=== PATIENT | male | born 1940 | race African-American/Black ===

== ENCOUNTER 2023-04-16 15:12 | Emergency (ER) | payer OTHER ==
--- NOTE | 2023-04-16 16:37 | RAD REPORT ---
EXAM DESCRIPTION: CT - Head C Spine Mpr Wo Con - 04/16/2023 4:19 pm CLINICAL HISTORY: Head and neck injury status post fall. Head and neck pain COMPARISON: None. TECHNIQUE: Computed axial tomography of the head and cervical spine was obtained. Sagittal and coronal reconstruction was performed. All CT scans are performed using dose optimization technique as appropriate and may include automated exposure control or mA/KV adjustment according to patient size. FINDINGS: Right supraorbital hematoma. Vascular calcifications An intracranial bleed is not seen. The ventricles are normal in caliber. Mild to moderate low densities within the and deep, periventricular and subcortical white matter prob ably ischemic changes secondary small vessel disease. An extra-axial fluid collection is not noted. Fluid within the visualized sinuses and mastoids is not seen A cervical fracture is not visualized. No dislocation is noted. Mild posterior subluxation C5 on C6. Mild anterior subluxation C7 on T1. Presumably these are chronic Spondylosis cervical spine results spinal stenosis. IMPRESSION: No acute intracranial abnormality is seen. A cervical fracture is not visualized. If the patient continues to have symptoms to suggest intracranial /spinal cord/ligamentous pathology then MRI would be recommended
--- NOTE | 2023-04-16 17:04 | ER ---
Nurse's Notes [facility] Name: Hung Trinh Age: 83 yrs Sex: Male : 1940 Arrival Date: 04/16/2023 Time: 15:12 Bed DIS1 Private MD: Diagnosis: History of falling;Fall on same level, unspecified;Abrasion of other part of head;Nontraumatic hematoma of soft tissue;Unspecified injury of head, initial encounter Presentation: 04/16 15:47 Chief complaint: Patient states: Trip while doing yard work just [employer]. Hit head on ll1 concrete. Hematoma to R face and R eye. No LOC. Ebola Screen: Patient denies travel to an Ebola-affected area in the 21 days before illness onset. Initial Sepsis Screen: Does the patient meet any 2 criteria? No. Patient's initial sepsis screen is negative. Does the patient have a suspected source of infection? No. Patient's initial sepsis screen is negative. Risk Assessment: Do you want to hurt yourself or someone else? Patient reports no desire to harm self or others. Onset of symptoms was April 16, 2023. 15:47 Method Of Arrival: EMS ll1 15:47 Acuity: USZANNE 3 ll1 Triage Assessment: 15:47 General: Appears uncomfortable, Behavior is calm, cooperative, appropriate for age. ll1 Pain: Complains of pain in right cheek Quality of pain is described as aching. Derm: abrasions/hematoma R cheek and R orbit. Musculoskeletal: Circulation, motion, and sensation intact. Capillary refill < 3 seconds. Historical: - Allergies: 15:47 No Known Allergies; ll1 - PMHx: 15:47 CAD; Gout; Hypertension; ll1 - Immunization history:: Adult Immunizations up to date. - Family history:: not pertinent. Assessment: 17:19 Reassessment: No changes from previously documented assessment. Patient and/or family ll1 updated on plan of care and expected duration. Pain level reassessed. Patient is alert, oriented x 3, equal unlabored respirations, skin warm/dry/pink. Vital Signs: 15:51 BP 156 / 90; Pulse 63; Resp 17; Temp 97.7; Pulse Ox 100% ; Pain 5/10; jl7 15:51 Pain Scale: Adult jl7 [place] Coma Score: 18:39 Eye Response: spontaneous(4). Motor Response: obeys commands(6). Verbal Response: ll1 oriented(5). Total: 15. Trauma Score (Adult): 18:39 Eye Response: spontaneous(1); Verbal Response: oriented(1); Motor Response: obeys ll1 commands(2); Systolic BP: > 89 mm Hg(4); Respiratory Rate: 10 to 29 per min(4); [place] Score: 15; Trauma Score: 12 ED Course: 15:37 Patient arrived in ED. mb9 15:40 Que Savage MD is Attending Physician. cp3 15:47 Arm band placed on. ll1 15:48 Triage completed. ll1 16:21 CT Head C Spine In Process Unspecified. EDMS 16:59 Andrew Penn MD is Referral Physician. cp3 Administered Medications: No medications were administered Outcome: 17:03 Discharge ordered by MD. cp3 17:19 Patient left the ED. ll1 17:19 Discharged to home via wheelchair. ll1 17:19 Condition: stable 17:19 Discharge instructions given to patient, family, Instructed on discharge instructions, follow up and referral plans. Demonstrated understanding of instructions, follow-up care, wound care. Signatures: Dispatcher [employer] EDPR Que Savage MD MD cp3 Koko Moeller RN RN jl7 Valentín James RN RN ll1 Gabby Irby RN RN mb9
--- NOTE | 2023-04-16 17:04 | EDPHYS ---
Physician Documentation [facility] Name: Hung Trinh Age: 83 yrs Sex: Male : 1940 Arrival Date: 04/16/2023 Time: 15:12 Bed DIS1 Private MD: ED Physician Que Savage HPI: 04/16 16:56 This 83 yrs old Black Male presents to ER via EMS with complaints of Fall Injury. cp3 16:56 Patient is a 83-year-old male with a history of coronary disease, gout, hypertension cp3 who presents to the ED secondary to fall from standing. Patient had mechanical fall lost his balance and fell and struck his right face on the wall. No LOC. No neurologic change. No nausea vomiting. Patient with soft tissue swelling over the right orbit. Historical: - Allergies: 15:47 No Known Allergies; ll1 - PMHx: 15:47 CAD; Gout; Hypertension; ll1 - Immunization history:: Adult Immunizations up to date. - Family history:: not pertinent. ROS: 16:56 Constitutional: Negative for fever, chills, and weight loss, Eyes: Negative for injury, cp3 pain, redness, and discharge, Neck: Negative for injury, pain, and swelling, Cardiovascular: Negative for chest pain, palpitations, and edema, Respiratory: Negative for shortness of breath, cough, wheezing, and pleuritic chest pain, Abdomen/GI: Negative for abdominal pain, nausea, vomiting, diarrhea, and constipation, Back: Negative for injury and pain, : Negative for injury, bleeding, discharge, and swelling, MS/Extremity: Negative for injury and deformity, Skin: Negative for injury, rash, and discoloration, Neuro: Negative for headache, weakness, numbness, tingling, and seizure, Psych: Negative for depression, anxiety, suicide ideation, homicidal ideation, and hallucinations, Allergy/Immunology: Negative for hives, rash, and allergies, Endocrine: Negative for neck swelling, polydipsia, polyuria, polyphagia, and marked weight changes, Hematologic/Lymphatic: Negative for swollen nodes, abnormal bleeding, and unusual bruising. 16:56 ENT: Positive for Right facial contusion. Exam: 16:56 Neck: Trachea midline, no thyromegaly or masses palpated, and no cervical cp3 lymphadenopathy. Supple, full range of motion without nuchal rigidity, or vertebral point tenderness. No Meningismus. Chest/axilla: Normal chest wall appearance and motion. Nontender with no deformity. No lesions are appreciated. Cardiovascular: Regular rate and rhythm with a normal S1 and S2. No gallops, murmurs, or rubs. Normal PMI, no JVD. No pulse deficits. Respiratory: Lungs have equal breath sounds bilaterally, clear to auscultation and percussion. No rales, rhonchi or wheezes noted. No increased work of breathing, no retractions or nasal flaring. Abdomen/GI: Soft, non-tender, with normal bowel sounds. No distension or tympany. No guarding or rebound. No evidence of tenderness throughout. Back: No spinal tenderness. No costovertebral tenderness. Full range of motion. Skin: Warm, dry with normal turgor. Normal color with no rashes, no lesions, and no evidence of cellulitis. MS/ Extremity: Pulses equal, no cyanosis. Neurovascular intact. Full, normal range of motion. Neuro: Awake and alert, GCS 15, oriented to person, place, time, and situation. Cranial nerves II-XII grossly intact. Motor strength 5/5 in all extremities. Sensory grossly intact. Cerebellar exam normal. Normal gait. Psych: Awake, alert, with orientation to person, place and time. Behavior, mood, and affect are within normal limits. 16:56 Head/face: Noted is abrasion(s), that are moderate, of the forehead, right cheek, right ear and right cheondoism, contusion. Vital Signs: 15:51 BP 156 / 90; Pulse 63; Resp 17; Temp 97.7; Pulse Ox 100% ; Pain 5/10; jl7 15:51 Pain Scale: Adult jl7 [place] Coma Score: 18:39 Eye Response: spontaneous(4). Motor Response: obeys commands(6). Verbal Response: ll1 oriented(5). Total: 15. Trauma Score (Adult): 18:39 Eye Response: spontaneous(1); Verbal Response: oriented(1); Motor Response: obeys ll1 commands(2); Systolic BP: > 89 mm Hg(4); Respiratory Rate: 10 to 29 per min(4); [place] Score: 15; Trauma Score: 12 MDM: 15:44 Patient medically screened. cp3 16:56 Differential diagnosis: abrasion, closed head injury, contusion, fracture, laceration, cp3 sprain, strain. Data reviewed: vital signs, nurses notes, EMS record, halfway records. Consideration of Admission/Observation Escalation of care including admission/observation considered. No emergent indication for hospitalization. I considered the following discharge prescriptions or medication management in the emergency department Medications were administered in the Emergency Department. See MAR. ED course: Results reviewed with patient and patient's son at bedside. 04/16 15:59 Order name: CT Head C Spine; Complete Time: 16:49 3 04/16 16:55 Interpretation: No acute disease except: Per Radiologist's finding(s): [place] [address] [facility] REPORT Name: HUNG TRINH Acct Number: [id number] :1940 Age:83 Sex:M Ord Phys: Que Savage MD Unit Number: [id number] [facility] Dr: Christos Mackey MD Status: REG ER ER Exam Date: 04/16/23 EXAM DESCRIPTION: CT - Head C Spine Mpr Wo Con - 04/16/2023 4:19 pm CLINICAL HISTORY: Head and neck injury status post fall. Head and neck pain COMPARISON: None. TECHNIQUE: Computed axial tomography of the head and cervical spine was obtained. Sagittal and coronal reconstruction was performed. All CT scans are performed using dose optimization technique as appropriate and may include automated exposure control or mA/KV adjustment according to patient size. FINDINGS: Right supraorbital hematoma. Vascular calcifications An intracranial bleed is not seen. The ventricles are normal in caliber. Mild to moderate low densities within the and deep, periventricular and subcortical white matter probably ischemic changes secondary small vessel disease. An extra-axial fluid collection is not noted. Fluid within the visualized sinuses and mastoids is not seen A cervical fracture is not visualized. No dislocation is noted. Mild posterior subluxation C5 on C6. Mild anterior subluxation C7 on T1. Presumably these are chronic Spondylosis cervical spine results spinal stenosis. IMPRESSION: No acute intracranial abnormality is seen. A cervical fracture is not visualized. If the patient continues to have symptoms to suggest intracranial /spinal cord/ligamentous pathology then MRI would be recommended Signed By: Ramon Morrissey MD Signed AT: 04/16/23 1637 , Per Radiologist's finding(s): [place] [address] [facility] REPORT Name: HUNG TRINH Acct Number: [id number] :1940 Age:83 Sex:M Ord Phys: Que Savage MD Unit Number: [id number] [facility] Dr: Christos Mackey MD Status: REG ER ER Exam Date: 04/16/23 EXAM DESCRIPTION: CT - Head C Spine Mpr Wo Con - 04/16/2023 4:19 pm CLINICAL HISTORY: Head and neck injury status post fall. Head and neck pain COMPARISON: None. TECHNIQUE: Computed axial tomography of the head and cervical spine was obtained. Sagittal and coronal reconstruction was performed. All CT scans are performed using dose optimization technique as appropriate and may include automated exposure control or mA/KV adjustment according to patient size. FINDINGS: Right supraorbital hematoma. Vascular calcifications An intracranial bleed is not seen. The ventricles are normal in caliber. Mild to moderate low densities within the and deep, periventricular and subcortical white matter probably ischemic changes secondary small vessel disease. An extra-axial fluid collection is not noted. Fluid within the visualized sinuses and mastoids is not seen A cervical fracture is not visualized. No dislocation is noted. Mild posterior subluxation C5 on C6. Mild anterior subluxation C7 on T1. Presumably these are chronic Spondylosis cervical spine results spinal stenosis. IMPRESSION: No acute intracranial abnormality is seen. A cervical fracture is not visualized. If the patient continues to have symptoms to suggest intracranial /spinal cord/ligamentous pathology then MRI would be recommended Signed By: Ramon Morrissey MD Signed AT: 04/16/23 163 . Administered Medications: No medications were administered Disposition Summary: 04/16/23 17:03 Discharge Ordered Location: Home cp3 Condition: Stable cp3 Diagnosis - History of falling cp3 - Fall on same level, unspecified cp3 - Abrasion of other part of head cp3 - Nontraumatic hematoma of soft tissue cp3 - Unspecified injury of head, initial encounter cp3 Followup: cp3 - With: Andrew Penn MD - When: 48 Hours - Reason: Wound Recheck Discharge Instructions: - Discharge Summary Sheet cp3 - Head Injury, Adult cp3 Forms: - Medication Reconciliation Form cp3 - Thank You Letter cp3 - Antibiotic Education cp3 - Prescription Opioid Use cp3 - Patient Portal Instructions cp3 - Leadership Thank You Letter cp3 Signatures: Dispatcher [employer] EDQue Cook MD MD cp3 Valentín James RN RN ll1 Corrections: (The following items were deleted from the chart) 16:55 16:55 Per Radiologist's finding(s): [place] [address] [facility] [address] [address] [facility] REPORT Name: HUNG TRINH Acct Number: [id number] :1940 Age:83 Sex:M Ord Phys: Que Savage MD Unit Number: [id number] [facility] Dr: Christos Mackey MD Status: REG ER ER Exam Date: 04/16/23 EXAM DESCRIPTION: CT - Head C Spine Mpr Wo Con - 04/16/2023 4:19 pm CLINICAL HISTORY: Head and neck injury status post fall. Head and neck pain COMPARISON: None. TECHNIQUE: Computed axial tomography of the head and cervical spine was obtained. Sagittal and coronal reconstruction was performed. All CT scans are performed using dose optimization technique as appropriate and may include automated exposure control or mA/KV adjustment according to patient size. FINDINGS: Right supraorbital hematoma. Vascular calcifications An intracranial bleed is not seen. The ventricles are normal in caliber. Mild to moderate low densities within the and deep, periventricular and subcortical white matter probably ischemic changes secondary small vessel disease. An extra-axial fluid collection is not noted. Fluid within the visualized sinuses and mastoids is not seen A cervical fracture is not visualized. No dislocation is noted. Mild posterior subluxation C5 on C6. Mild anterior subluxation C7 on T1. Presumably these are chronic Spondylosis cervical spine results spinal stenosis. IMPRESSION: No acute intracranial abnormality is seen. A cervical fracture is not visualized. If the patient continues to have symptoms to suggest intracranial /spinal cord/ligamentous pathology then MRI would be recommended Signed By: Ramon Morrissey MD Signed AT: 04/16/23 1637 . cp3 16:56 16:55 Per Radiologist's finding(s): [place] [id number] [facility] REPORT Name: HUNG TRINH Acct Number: [id number] :1940 Age:83 Sex:M Ord Phys: Que Savage MD Unit Number: [id number] [facility] Dr: Christos Mackey MD Status: REG ER ER Exam Date: 04/16/23 EXAM DESCRIPTION: CT - Head C Spine Mpr Wo Con - 04/16/2023 4:19 pm CLINICAL HISTORY: Head and neck injury status post fall. Head and neck pain COMPARISON: None. TECHNIQUE: Computed axial tomography of the head and cervical spine was obtained. Sagittal and coronal reconstruction was performed. All CT scans are performed using dose optimization technique as appropriate and may include automated exposure control or mA/KV adjustment according to patient size. FINDINGS: Right supraorbital hematoma. Vascular calcifications An intracranial bleed is not seen. The ventricles are normal in caliber. Mild to moderate low densities within the and deep, periventricular and subcortical white matter probably ischemic changes secondary small vessel disease. An extra-axial fluid collection is not noted. Fluid within the visualized sinuses and mastoids is not seen A cervical fracture is not visualized. No dislocation is noted. Mild posterior subluxation C5 on C6. Mild anterior subluxation C7 on T1. Presumably these are chronic Spondylosis cervical spine results spinal stenosis. IMPRESSION: No acute intracranial abnormality is seen. A cervical fracture is not visualized. If the patient continues to have symptoms to suggest intracranial /spinal cord/ligamentous pathology then MRI would be recommended Signed By: Ramon Morrissey MD Signed AT: 04/16/23 1637 , Per Radiologist's finding(s): [place] [address] [facility] REPORT Name: HUNG TRINH Acct Number: [id number] :1940 Age:83 Sex:M Ord Phys: Que Savage MD Unit Number: [id number] [facility] Dr: Christos Mackey MD Status: REG ER ER Exam Date: 04/16/23 EXAM DESCRIPTION: CT - Head C Spine Mpr Wo Con - 04/16/2023 4:19 pm CLINICAL HISTORY: Head and neck injury status post fall. Head and neck pain COMPARISON: None. TECHNIQUE: Computed axial tomography of the head and cervical spine was obtained. Sagittal and coronal reconstruction was performed. All CT scans are performed using dose optimization technique as appropriate and may include automated exposure control or mA/KV adjustment according to patient size. FINDINGS: Right supraorbital hematoma. Vascular calcifications An intracranial bleed is not seen. The ventricles are normal in caliber. Mild to moderate low densities within the and deep, periventricular and subcortical white matter probably ischemic changes secondary small vessel disease. An extra-axial fluid collection is not noted. Fluid within the visualized sinuses and mastoids is not seen A cervical fracture is not visualized. No dislocation is noted. Mild posterior subluxation C5 on C6. Mild anterior subluxation C7 on T1. Presumably these are chronic Spondylosis cervical spine results spinal stenosis.
[2023-04-16 17:24] VITALS: BP 156/90; TEMP 97.7; O2SAT 100
== END 2023-04-16 17:19 | disposition home or self-care (01) ==
LOC: ER 15:12
DX: S00.81XA Abrasion of other part of head, initial encounter (principal); M79.81 Nontraumatic hematoma of soft tissue; W18.30XA Fall on same level, unspecified, initial encounter; Z91.81 History of falling; I10 Essential (primary) hypertension; I25.10 Atherosclerotic heart disease of native coronary artery without angina pectoris
CPT/HCPCS: 70450; 72125; 99283

== ENCOUNTER 2024-06-11 11:29 | Emergency (ER) | payer OTHER ==
[2024-06-11 12:05] LABS: Absolute Lymphocytes (CBC) 1.7 K/uL (0.7-4.9); Absolute Monocytes 0.4 K/uL (0.1-1.3); Absolute Neutrophil 4.4 K/uL (1.8-8.0); Basophils % 0.5 % (0-1.3); Eosinophils % 0.5 % (0-4.4); Hemoglobin 13.7 g/dL (13.6-17.9); Lymphocytes % 25.8 % (15.3-44.8); MCH 30.9 pg (27.0-35.0); MCHC 32.5 g/dL (32.0-36.0); MPV 9.2 fL (7.6-11.3); Monocytes % 5.8 % (3.3-12.3); Neutrophils % 67.4 % (41.7-73.7); Platelets 197 thou/uL (152-406); RBC Red Blood Cell Count 4.43 M/uL (4.33-5.43)
[2024-06-11 12:28] LABS: Albumin 3.6 g/dL (3.4-5.0); Albumin/Globulin Ratio 0.8 (1.1-1.8); Anion Gap 8.5 mEq/L (5.0-15.0); Bilirubin Direct 0.2 mg/dL (0-0.2); Bilirubin Indirect, Calculated 0.4 mg/dL (0.2-0.8); Bilirubin Total 0.6 mg/dL (0.2-1.0); Globulin 4.5 g/dL (2.3-3.5); Potassium 3.5 mEq/L (3.5-5.1); Protein, Total 8.1 g/dL (6.4-8.2)
--- NOTE | 2024-06-11 13:38 | RAD REPORT ---
EXAM: CT brain without contrast HISTORY: TRAUMA COMPARISON: 04/16/2023 TECHNIQUE: Multiple contiguous axial images were obtained and a CT of the brain without contrast. Sag ittal and coronal reformats were performed. One or more of the following dose reduction techniques were used: Automated exposure control, adjust ment of the mA and/or kV according to patient size, and/or iterative reconstruction. FINDINGS: No evidence of hydrocephalus, intracranial hemorrhage, or extra-axial fluid collection. Mild brain atrophy with mild periventricular and deep white matter chronic microvascular ischemic ch anges present. No evidence of midline shift or areas of brain edema. The calvarium is intact. The visualized paranasal sinuses and mastoid air cells are essentially clear . Small right frontal scalp hematoma. IMPRESSION: No evidence of acute intracranial abnormality. EXAM: CT of the cervical spine without contrast HISTORY: Neck pain, injury TRAUMA COMPARISON: None TECHNIQUE: Multiple contiguous axial images were obtained in a CT of the cervical spine without contr ast. Sagittal and coronal reformats were performed. FINDINGS: The vertebral bodies demonstrate normal height and alignment. No evidence of acute fracture or subluxation.. Prominent multilevel degenerative changes seen mid and lower cervical spine with large posterior osteophyte. No prevertebral soft tissue swelling is seen. The posterior facets are well aligned. Normal alignment of the skull base with the cervical spine is seen. Bilateral carotid atherosclerosis. The lung apices are unremarkable. IMPRESSION: No evidence of acute osseous abnormality of the cervical spine. Moderate mid and lower cervical degenerative changes.
--- NOTE | 2024-06-11 13:41 | RAD REPORT ---
EXAM: CT CHEST, ABDOMEN AND PELVIS WITH CONTRAST CLINICAL INDICATION: [facility] TECHNIQUE: CT chest, abdomen and pelvis was performed, following the administration of contrast, as p er department protocol. Axial, sagittal and coronal reconstructions were obtained. One or more of the following dose reduction techniques were used: Automated exposure control, adjustment of the mA a nd/or kV according to patient size, and/or iterative reconstruction. Unless otherwise specified, incidental findings do not require dedicated imaging follow-up. COMPARISON: No prior exam. FINDINGS: LUNGS: Mild linear atelectasis in both lung bases. The lungs are emphysematous. PLEURA: No pleural effusion. No pneumothorax. MEDIASTINUM AND LYMPH NODES: No mediastinal mass or fluid collection. Normal size mediastinal, hilar, and axillary lymph nodes. Coronary calculations are seen along with mild aortic atherosclerosis. OSSEOUS STRUCTURES AND CHEST WALL: Intact. Sternotomy. LIVER: Normal in size and contour. No focal lesion or biliary dilatation. Grossly unremarkable gallbl adder. PANCREAS: No mass, ductal dilation, or dee-pancreatic fluid. SPLEEN: Normal size. No focal lesion. ADRENALS: Normal; no mass. KIDNEYS: Normal size and contour. No hydronephrosis. URINARY BLADDER: Normal contour. GASTROINTESTINAL TRACT: No bowel obstruction, free air, significant free fluid or abscess. APPENDIX: Normal appendix. LYMPH NODES: No lymphadenopathy. MUSCULOSKELETAL: No acute or suspicious osseous abnormality. OTHER: IMPRESSION: No acute or significant abnormalities seen in the chest, abdomen or pelvis.
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
[2024-06-11 15:22] VITALS: BP 158/74; TEMP 97.5; O2SAT 100
== END 2024-06-11 14:11 | disposition home or self-care (01) ==
LOC: ER 11:29
DX: S20.212A Contusion of left front wall of thorax, initial encounter (principal); R29.91 Unspecified symptoms and signs involving the musculoskeletal system; V49.40XA Driver injured in collision with unspecified motor vehicles in traffic accident, initial encounter
CPT/HCPCS: 85025; 80048; 36415; 80076; 83690; 70450; 72125; 71260; 74177; 99284; Q9967